=== PATIENT | female | born 1945 | race Caucasian/White ===

== ENCOUNTER 2019-02-01 06:28 | Day surgery (SDC) | payer MEDICARE, OTHER ==
[2019-02-01] MEDS ORDERED: Lactated Ringers 1,000 ML IV SCH (07:00)
[2019-02-01] MEDS ORDERED: DIPRIVAN 200 MG/20 ML IV ONE ×3 (07:44→08:27)
[2019-02-01] MEDS ORDERED: Ketamine HCl 50 MG/ML ONE (07:49)
[2019-02-01] MEDS ORDERED: Lactated Ringers 1,000 ML IV ONE (08:22)
[2019-02-01 09:50] VITALS: O2SAT 98
[2019-02-01 10:41] VITALS: BP 132/72; PULSE 64
--- NOTE | 2019-02-01 11:06 | OP ---
SURGERY DATE/TIME: 02/01/2019 0757 PREOPERATIVE DIAGNOSIS: Screening colonoscopy. POSTOPERATIVE DIAGNOSIS: Ascending colon polyps x2. PROCEDURE: Colonoscopy. SURGEON: Calvin Vo M.D. ANESTHESIA: MAC by Ryan Salgado CRNA. ESTIMATED BLOOD LOSS: Minimal. SPECIMENS: One hot snare polypectomy from the ascending colon and one hot forceps polypectomy from the ascending colon. DESCRIPTION OF PROCEDURE: After informed written consent was obtained, the patient was taken to the endoscopy suite. She underwent monitored anesthesia and a digital rectal exam showed external hemorrhoids but no internal lesions. The scope was inserted into the rectum and sequentially the entire colonic mucosa was traversed. There was scattered diffuse diverticulosis noted and bowel prep was noted to be poor and locations of liquid stool present. The cecum was reached and verified with direct visualization of ileocecal valve. A large sessile polyp in the ascending colon was encompassed with a snare and grasped at the base, cauterized, retrieved and sent for pathology testing. Good hemostasis was achieved and the entire lesion appeared to be removed. A small sessile polyp in the more proximal ascending colon near the cecum was grasped with forceps, cauterized, removed in its entirety and sent for pathology in the same container due to the close proximity. No other lesions were encountered upon withdrawal but again diffuse diverticulosis was present and suboptimal prep was also noted. Prior to withdrawal retroflexion was performed and showed no internal lesions. The scope was removed and the patient was transferred to the recovery room in good condition.
== END 2019-02-01 10:15 | disposition home or self-care (01) ==
LOC: SDC 06:28
PROVIDERS: ATTEND Family Medicine
DX: Z12.11 Encounter for screening for malignant neoplasm of colon (principal); D12.2 Benign neoplasm of ascending colon; E11.9 Type 2 diabetes mellitus without complications; Z79.899 Other long term (current) drug therapy
CPT/HCPCS: 82962; J2704

== ENCOUNTER 2022-06-11 05:51 | Day surgery (SDC) | payer MEDICARE, OTHER ==
[2022-06-11] MEDS ORDERED: Lactated Ringers 1,000 ML IV SCH (06:30)
[2022-06-11] MEDS ORDERED: DIPRIVAN 200 MG/20 ML IV ONE (07:12)
[2022-06-11] MEDS ORDERED: Xylocaine-Mpf 2% 5 Ml Vial ONE (07:13)
--- NOTE | 2022-06-11 08:49 | OP ---
SURGERY DATE/TIME: 06/11/2022 0738 PREOPERATIVE DIAGNOSIS: History of colon polyps. POSTOPERATIVE DIAGNOSIS: Descending colon polyp. PROCEDURE: Colonoscopy. SURGEON: Calvin Vo M.D. ANESTHESIA: MAC by Blu Holder CRNA. ESTIMATED BLOOD LOSS: Minimal. SPECIMENS: Hot forceps polypectomy from descending colon polyp. DESCRIPTION OF PROCEDURE: After informed written consent was obtained, the patient was taken to the endoscopy suite. She was placed in left lateral decubitus position and anesthesia was titrated to desired level of consciousness. Digital rectal exam showed normal sphincter tone and no internal lesions. The scope was inserted into the rectum and sequentially the entire colonic mucosa was traversed. The level of cecum was reached and verified with direct visualization of the ileocecal valve. Upon withdrawal careful mucosal inspection revealed no gross abnormalities until the descending colon there was a small sessile polyp which was grasped with the forceps cauterized and removed in its entirety and sent for pathology testing. The remainder of the exam was unremarkable. Prior to withdrawal retroflexion was performed and showed no internal lesions. The scope was removed and the patient was transferred to the recovery room in good condition.
[2022-06-11 08:57] VITALS: BP 114/55; PULSE 73; O2SAT 97
== END 2022-06-11 09:17 | disposition home or self-care (01) ==
LOC: SDC 05:51
PROVIDERS: ATTEND Family Medicine
DX: Z09 Encounter for follow-up examination after completed treatment for conditions other than malignant neoplasm (principal); Z86.010 Personal history of colon polyps; D12.4 Benign neoplasm of descending colon; E11.9 Type 2 diabetes mellitus without complications
CPT/HCPCS: 82947; 93005; 99100; J2704

== ENCOUNTER 2023-09-28 08:07 | Day surgery (SDC) | payer MEDICARE, OTHER ==
[~2023-09-28 08:07] MED LIST: BETADINE 5% OPHTHALMIC 30 ML OP ONE; NON-FORMULARY ITEM OP ONE; cefUROXime sodium 0.005 GM in Sodium Chloride Flush 30 ML*** 0.5 ML IJ ONE
[2023-09-28] MEDS ORDERED: Epinephrine Preservative Free 1 MG/ML IJ ONE (08:08)
[2023-09-28] MEDS ORDERED: Zofran 4 MG/2 ML VIAL IV PRN (10:30)
[2023-09-28] MEDS: Lactated Ringers 1,000 ML IV SCH (10:30)
[2023-09-28] MEDS ORDERED: Lactated Ringers 1,000 ML IV ONE (10:30)
[2023-09-28 10:36] VITALS: RESP 18
[2023-09-28] MEDS: TETRACAINE 0.5% STERI-UNIT SOL OP ONE ×2 (10:44→11:24)
[2023-09-28] MEDS: Ak-Dilate OPHTHALMIC*** 1.065 ML, Cyclogyl 1% OPHTH SOL 1.065 ML, GATIFLOXACIN 0.5% OPH... OP ONE (10:45)
[2023-09-28] MEDS ORDERED: SUBLIMAZE 100 MCG/2 ML ONE (13:46)
[2023-09-28] MEDS ORDERED: Versed 2 MG/2 ML Injection ONE (13:46)
[2023-09-28] MEDS ORDERED: DIPRIVAN 200 MG/20 ML IV ONE (13:46)
[2023-09-28 14:25] VITALS: TEMP 97.1
[2023-09-28] MEDS: ACETAZOLAMIDE 250 MG TABLET PO ONE (14:31)
[2023-09-28 14:35] VITALS: BP 160/56; PULSE 62; O2SAT 95
== END 2023-09-28 15:00 | disposition home or self-care (01) ==
LOC: SDC 08:07
PROVIDERS: ATTEND Ophthalmology
DX: H25.811 Combined forms of age-related cataract, right eye (principal); E11.9 Type 2 diabetes mellitus without complications
CPT/HCPCS: 82947; C1780; J0171; J2250; J2704; J3010; A9270-GY

== ENCOUNTER 2023-10-26 08:58 | Day surgery (SDC) | payer MEDICARE, OTHER ==
[~2023-10-26 08:58] MED LIST changes: -BETADINE 5% OPHTHALMIC 30 ML OP ONE; +Lactated Ringers 1,000 ML IV ONE; -NON-FORMULARY ITEM OP ONE; -cefUROXime sodium 0.005 GM in Sodium Chloride Flush 30 ML*** 0.5 ML IJ ONE
[2023-10-26] MEDS ORDERED: cefUROXime sodium 0.005 GM in Sodium Chloride Flush 30 ML*** 0.5 ML IJ ONE (09:00)
[2023-10-26] MEDS ORDERED: NON-FORMULARY ITEM OP ONE (09:00)
[2023-10-26] MEDS ORDERED: BETADINE 5% OPHTHALMIC 30 ML OP ONE (09:00)
[2023-10-26] MEDS: TETRACAINE 0.5% STERI-UNIT SOL OP ONE ×2 (09:19→10:06)
[2023-10-26] MEDS: Ak-Dilate OPHTHALMIC*** 1.065 ML, Cyclogyl 1% OPHTH SOL 1.065 ML, GATIFLOXACIN 0.5% OPH... OP ONE (09:21)
[2023-10-26] MEDS: Lactated Ringers 1,000 ML IV SCH (09:26)
[2023-10-26] MEDS ORDERED: Epinephrine Preservative Free 1 MG/ML IJ ONE (11:00)
[2023-10-26] MEDS ORDERED: Zofran 4 MG/2 ML VIAL IV PRN (11:00)
[2023-10-26] MEDS ORDERED: DIPRIVAN 200 MG/20 ML IV ONE (11:27)
[2023-10-26] MEDS ORDERED: Versed 2 MG/2 ML Injection ONE (11:28)
[2023-10-26] MEDS ORDERED: SUBLIMAZE 100 MCG/2 ML ONE (11:28)
[2023-10-26 11:53] VITALS: TEMP 97.2
[2023-10-26 11:58] VITALS: RESP 16
[2023-10-26] MEDS: ACETAZOLAMIDE 250 MG TABLET PO ONE (12:00)
[2023-10-26 12:07] VITALS: BP 141/90; PULSE 65; O2SAT 96
== END 2023-10-26 12:21 | disposition home or self-care (01) ==
LOC: SDC 08:58
PROVIDERS: ATTEND Ophthalmology
DX: H25.812 Combined forms of age-related cataract, left eye (principal); E11.9 Type 2 diabetes mellitus without complications
CPT/HCPCS: 82947; C1780; J0171; J2250; J2704; J3010; A9270-GY